=== PATIENT | female | born 1945 | race Caucasian/White ===

== ENCOUNTER 2016-03-01 12:39 | Emergency (ER) | payer MEDICARE, MEDICAID ==
[2016-03-01] MEDS ORDERED: Hydrocodone/APAP 10/325 MG TAB ONE (15:32)
== END 2016-03-01 16:42 | disposition home or self-care (01) ==
LOC: ER 12:39
DX: S30.0XXA Contusion of lower back and pelvis, initial encounter (principal); W01.0XXA Fall on same level from slipping, tripping and stumbling without subsequent striking against object, initial encounter; Y92.007 Garden or yard of unspecified non-institutional (private) residence as the place of occurrence of the external cause; Z79.899 Other long term (current) drug therapy; Z79.01 Long term (current) use of anticoagulants; Z79.4 Long term (current) use of insulin; E11.9 Type 2 diabetes mellitus without complications; I10 Essential (primary) hypertension; Z87.891 Personal history of nicotine dependence; I25.2 Old myocardial infarction; Z95.1 Presence of aortocoronary bypass graft; I25.10 Atherosclerotic heart disease of native coronary artery without angina pectoris; Z86.718 Personal history of other venous thrombosis and embolism
CPT/HCPCS: 36415; 72220; 80048; 85025; 85610; 85730